=== PATIENT | male | born 1970 | race Caucasian/White ===

== ENCOUNTER → 2017-08-04 | Outpatient (CLI) | payer BC, OTHER ==
[2017-08-04 17:50] LABS: CREATININE 0.8 mg/dL (0.6-1.2)
[2017-08-04 17:54] LABS: HB2 TOTAL 15.4 g/dL; HEMOGLOBIN A1C 1.18 g/dL; HEMOGLOBIN A1C % 9.2 % (4.6-6.2)
== END ==
LOC: LAB.F 08:00
PROVIDERS: ATTEND Family Medicine
DX: E11.42 Type 2 diabetes mellitus with diabetic polyneuropathy (principal)
CPT/HCPCS: 36415; 82565; 83036; 84132

== ENCOUNTER 2017-09-14 11:21 | Outpatient (CLI) | payer OTHER ==
--- NOTE | 2017-09-14 13:10 | CT Report ---
CT ABDOMEN AND PELVIS WITHOUT CONTRAST: 09/14/2017 CLINICAL INDICATION: Ureteral stone. TECHNIQUE: Axial CT images of the abdomen and pelvis were obtained without oral or intravenous contrast. COMPARISON: No previous CT is available for comparison. FINDINGS: Limited evaluation of the lung bases is unremarkable. ABDOMEN: There is a right ureteral stent in place. Multiple small right renal calculi are seen, measuring up to 3 mm. No left renal calculi are seen. Allowing for the lack of intravenous contrast enhancement, the liver, spleen, pancreas and adrenal glands appear unremarkable. The gallbladder is not dilated. Postoperative changes are seen in the right anterior abdominal wall. No bowel dilatation, free gas, or free fluid is present. PELVIS: There is a paraumbilical hernia present, containing fat. No bowel herniation is seen. Right ureteral stent terminates in the urinary bladder. No hydroureter is seen. No bladder calculus is appreciated. No free fluid or pelvic adenopathy is seen. Osseous structures demonstrate degenerative changes. IMPRESSION: RIGHT URETERAL STENT IN PLACE. MULTIPLE SMALL RIGHT RENAL CALCULI, MEASURING UP TO [address] DOSE REDUCTION STATEMENT In accordance with CT protocol optimization, one or more of the following dose reduction techniques were utilized for this exam: automated exposure control, adjustment of mA and/or KV based on patient size, or use of iterative reconstructive technique. TD: 09/14/2017 13:09
== END 2017-09-14 11:22 | disposition home or self-care (01) ==
LOC: DI 11:21
PROVIDERS: ATTEND Urology
DX: N20.0 Calculus of kidney (principal); Z96.0 Presence of urogenital implants
CPT/HCPCS: 74176

== ENCOUNTER 2020-06-14 16:35 | Outpatient (CLI) | payer OTHER | END 2020-06-14 16:36 | disposition EMS.NT | LOC: EMS 16:35 | PROVIDERS: ATTEND Surgery | DX: R07.89 Other chest pain (principal) ==

== ENCOUNTER 2020-12-21 11:20 | Outpatient (CLI) | payer OTHER | END 2020-12-21 11:21 | disposition EMS.NT | LOC: EMS 11:20 | DX: Z03.89 Encounter for observation for other suspected diseases and conditions ruled out (principal) ==

== ENCOUNTER 2021-02-13 12:40 | Outpatient (CLI) | payer OTHER ==
[2021-02-13 20:11] LABS: ESTIMATED AVERAGE GLUCOSE 212 mg/dL (70-100)
== END 2021-02-13 12:41 | disposition home or self-care (01) ==
LOC: LAB.S 12:40
PROVIDERS: ATTEND Student in an Organized Health Care Education/Training Program
DX: E11.65 Type 2 diabetes mellitus with hyperglycemia (principal)
CPT/HCPCS: 36415; 83036

== ENCOUNTER 2021-02-26 14:44 | Outpatient (CLI) | payer OTHER | END 2021-02-26 14:45 | disposition EMS.NT | LOC: EMS 14:44 | DX: R09.81 Nasal congestion (principal); R05.9 Cough, unspecified; R06.00 Dyspnea, unspecified; H57.89 Other specified disorders of eye and adnexa ==

== ENCOUNTER 2021-09-03 12:32 | Outpatient (CLI) | payer OTHER ==
[2021-09-03 15:08] LABS: H. PYLORIS ANTIGEN STL NEGATIVE (Negative)
== END 2021-09-03 12:33 | disposition home or self-care (01) ==
LOC: LAB.S 12:32
PROVIDERS: ATTEND Internal Medicine Gastroenterology
DX: A04.8 Other specified bacterial intestinal infections (principal)
CPT/HCPCS: 87338

== ENCOUNTER 2022-02-11 14:56 | Emergency (ER) | payer OTHER ==
--- NOTE | 2022-02-11 15:01 | ED Physician Documentation ---
PD HPI Fall - Stated complaint Stated Complaint: FALL - History obtained from History obtained from: Patient - History of Present Illness Mechanism of injury: Tripped (he states there is an uneven step at his place of work, and he tripped on it, falling forward. struck right parietal area. No LOC but was dazed and felt confused. Coworker said he seemed slow to answer and somewhat off balance. Brought right to ER. [place] lightheaded and had near syncope in ER lobby.) Fall distance: Standing position Where injury occurred: Work Timing - onset: How many minutes ago (30), Today Injury(ies) location: Head, Neck. No: Chest, Abdomen Quality of pain: Pain, Aching (right frontal) Associated symptoms: AMS, Neck pain. No: LOC, Weakness, Paresthesias, Dyspnea, Nausea / vomiting Worsens with: Palpation Contributing factors: No: Anticoagulated, Intoxicated Similar symptoms before: Has not had sx before Recently seen: Not recently seen Review of Systems Constitutional: denies: Fever Eyes: denies: Decreased vision, Photophobia Nose: denies: Rhinorrhea / runny nose, Congestion Throat: denies: Sore throat Cardiac: denies: Chest pain / pressure Respiratory: denies: Cough GI: denies: Abdominal Pain, Nausea, Vomiting Skin: denies: Abrasion (s), Laceration (s) Neurologic: denies: Focal weakness, Numbness PD PAST MEDICAL HISTORY - Past Medical History Cardiovascular: None Respiratory: None Neuro: None Endocrine/Autoimmune: Type 2 diabetes GI: None, Hiatal hernia : Kidney stones - Past Surgical History Past Surgical History: Yes General: Hiatal hernia repair - Present Medications Home Medications: Ambulatory Orders Medication Instructions Recorded Confirmed Metformin HCl 500 mg PO BID #30 tablet 12/23/14 - Allergies Allergies/Adverse Reactions: Allergies Allergy/AdvReac Type Severity Reaction Status Date / Time No Known Drug Allergies Allergy Verified 12/22/14 23:01 - Social History Does the pt smoke?: No Smoking Status: Never smoker Does the pt drink ETOH?: Yes Does the pt have substance abuse?: No - Immunizations Immunizations are current?: Yes - POLST Patient has POLST: No PD ED PE NORMAL - Vitals Vital signs reviewed: Yes - General General: Alert and oriented X 3, Well developed/nourished - HEENT HEENT: PERRL, EOMI, Other (right parietal area with some soft tissue swelling and tenderness. No deformity. No lacerations. ) - Neck Neck: Supple, no meningeal sign, No adenopathy, Other (some tenderness without deformity in mid to lower right cervical area. ) - Cardiac Cardiac: RRR, No murmur - Respiratory Respiratory: Clear bilaterally, Other (no chestwall tenderness) - Abdomen Abdomen: Soft, Non tender - Back Back: No spinal TTP - Derm Derm: Normal color, Warm and dry - Extremities Extremities: Normal ROM s pain - Neuro Neuro: Alert and oriented X 3, No motor deficit, No sensory deficit, Normal speech Eye Opening: Spontaneous Motor: Obeys Commands Verbal: Oriented GCS Score: 15 Results - Vitals Vitals: Vital Signs - 24 hr 02/11/22 02/11/22 02/11/22 14:57 15:46 16:07 Temperature 37.2 C Heart Rate 98 88 90 Respiratory 14 18 16 Rate Blood Pressure 212/113 H 155/100 H 140/92 H O2 Saturation 99 98 100 02/11/22 02/11/22 16:30 17:00 Temperature Heart Rate 98 90 Respiratory 24 22 Rate Blood Pressure 176/84 H 154/96 H O2 Saturation 99 98 Oxygen O2 Source Room air - Labs Labs: Laboratory Tests 02/11/22 02/11/22 02/11/22 15:00 15:15 15:15 WBC 7.8 RBC 5.19 Hgb 14.6 Hct 43.5 MCV 83.8 MCH 28.1 MCHC 33.6 RDW 13.7 Plt Count 235 MPV 10.2 Neut # (Auto) 5.6 Lymph # (Auto) 1.6 [place] # (Auto) 0.5 Eos # (Auto) 0.1 Baso # (Auto) 0.0 Absolute Nucleated RBC 0.00 Nucleated RBC % 0.0 Sodium 136 Potassium 3.8 Chloride 103 Carbon Dioxide 23 Anion Gap 10.0 BUN 16 Creatinine 0.9 Estimated GFR (MDRD) 90 Glucose 329 H POC Whole Bld Glucose 352 H Calcium 9.2 Total Bilirubin 0.6 AST 15 ALT 22 Alkaline Phosphatase 66 Total Protein 7.6 Albumin 4.2 Globulin 3.4 Albumin/Globulin Ratio 1.2 Lipase 27 Ethyl Alcohol < 5.0 - Rads (name of study) head ct Radiology: Prelim report reviewed (no ICH nor acute injury), See rad report cervical CT Radiology: Prelim report reviewed (no fractures), See rad report PD MEDICAL DECISION MAKING - ED course Complexity details: reviewed results (normal head and cervical CTs. ), re-evaluated patient (he is looking more comfortable and alert on recheck. ), considered differential, d/w patient Departure - Departure Disposition: 01 Home, Self Care Clinical Impression: Fall from slip, trip, or stumble Qualifiers: Encounter type: initial encounter Qualified Code(s): W01.0XXA - Fall on same level from slipping, tripping and stumbling without subsequent striking against object, initial encounter Head contusion Qualifiers: Encounter type: initial encounter Contusion of head detail: scalp Qualified Code(s): S00.03XA - Contusion of scalp, initial encounter Mild concussion Qualifiers: Encounter type: initial encounter Loss of consciousness presence/duration: without LOC Qualified Code(s): S06.0X0A - Concussion without loss of consciousness, initial encounter Condition: Stable Record reviewed to determine appropriate education?: Yes Instructions: ED Concussion Follow-Up: JOEL CHAN DO [Primary Care Provider] - Comments: Your head CT and neck CT did not show any signs of bleeding, localized swelling, fractures. Your symptoms are consistent with a mild concussion. I would anticipate headache and some fogginess and some incoordination over the next 2 or 3 days. Progress activity as tolerated based on comfort and symptoms. If you find activity causing increased headache or feeling off balance etc., then you will need to extend the time of rest and less activity until you are better. Most commonly symptoms are 2 or 3 days but can be variable quite a bit among individuals. Tylenol ibuprofen as needed for headache. Discharge Date/Time: 02/11/22 17:09
[2022-02-11] MEDS ORDERED: KETOROLAC 15 MG/ML VIAL IVP STA (15:14)
[2022-02-11] MEDS ORDERED: ONDANSETRON 4 MG/2 ML VIAL IVP STA (15:15)
[2022-02-11 15:22] LABS: BASOPHILS % (AUTO) 0.4 %; EOSINOPHILS # (AUTO) 0.1 10^3/uL (0.0-0.7); EOSINOPHILS % (AUTO) 0.6 %; HCT - HEMATOCRIT 43.5 % (42.0-52.0); HGB - HEMOGLOBIN 14.6 g/dL (14.0-18.0); LYMPHOCYTES # (AUTO) 1.6 10^3/uL (1.5-3.5); LYMPHOCYTES % (AUTO) 20.7 %; MEAN CORPUSCULAR HEMOGLOBIN 28.1 pg (27.0-31.0); MEAN CORPUSCULAR HGB CONC 33.6 g/dL (32.0-36.0); MEAN CORPUSCULAR VOLUME 83.8 fL (80.0-94.0); MEAN PLATELET VOLUME 10.2 fL (7.4-11.4); MONOCYTES # (AUTO) 0.5 10^3/uL (0.0-1.0); MONOCYTES % (AUTO) 6.1 %; NEUTROPHILS # (AUTO) 5.6 10^3/uL (1.5-6.6); NEUTROPHILS % (AUTO) 71.7 %; PLT - PLATELET COUNT 235 10^3/uL (130-450); RED BLOOD COUNT 5.19 10^6/uL (4.70-6.10); RED CELL DISTRIBUTION WIDTH 13.7 % (12.0-15.0); WHITE BLOOD COUNT 7.8 x10^3/uL (4.8-10.8)
[2022-02-11 15:35] LABS: ALBUMIN 4.2 g/dL (3.2-5.5); ALBUMIN/GLOBULIN RATIO 1.2 (1.0-2.2); ALKALINE PHOSPHATASE 66 IU/L (42-121); ALT ALANINE AMINOTRANSFERASE 22 IU/L (10-60); AST ASPARTATE AMINOTRANSFERASE 15 IU/L (10-42); BILIRUBIN,TOTAL 0.6 mg/dL (0.2-1.0); BUN - BLOOD UREA NITROGEN 16 mg/dL (6-20); CALCIUM 9.2 mg/dL (8.5-10.3); CARBON DIOXIDE - CO2 23 mmol/L (21-32); CHLORIDE 103 mmol/L (101-111); CREATININE 0.9 mg/dL (0.6-1.2); ETOH - ETHANOL < 5.0 mg/dL; GFR - MDRD 90 (>89); GLUCOSE 329 mg/dL (70-100); LIPASE 27 U/L (22-51); POTASSIUM 3.8 mmol/L (3.5-5.0); SODIUM 136 mmol/L (135-145); TOTAL PROTEIN 7.6 g/dL (6.7-8.2)
--- NOTE | 2022-02-11 16:04 | CT Report ---
PROCEDURE: CERVICAL SPINE WO INDICATIONS: fall, struck head; head/neck pain TECHNIQUE: Noncontrast 3 mm thick sections acquired from the skull base to the T4 level. Sagittal and coronal r eformats were then constructed. For radiation dose reduction, the following was used: automated exp osure control, adjustment of mA and/or kV according to patient size. COMPARISON: None. FINDINGS: Image quality: Excellent. Bones: No fractures or dislocations. Visualized superior ribs are intact. Soft tissues: Prevertebral soft tissues are normal in thickness. No paravertebral hematomas. No ap ical pneumothoraces. IMPRESSION: No acute cervical spine fracture or dislocation. Reviewed by: Praveen Irizarry MD on 02/11/2022 4:03 PM PDT Approved by: Praveen Irizarry MD on 02/11/2022 4:03 PM PDT Station ID: [id number]
--- NOTE | 2022-02-11 16:05 | CT Report ---
PROCEDURE: HEAD WO INDICATIONS: fall, struck head; confused/FINK TECHNIQUE: Noncontrast 4.5 mm thick angled axial sections acquired from the foramen magnum to the vertex. For r adiation dose reduction, the following was used: automated exposure control, adjustment of mA and/or kV according to patient size. COMPARISON: None. FINDINGS: Image quality: Excellent. CSF spaces: Basal cisterns are patent. No extra-axial fluid collections. Ventricles are normal in size and shape. Brain: No midline shift. No intracranial masses or hemorrhage. Contreras-white matter interface is norm al. Skull and face: Calvarium and visualized facial bones are intact, without suspicious lesions. Sinuses: Visualized sinuses and mastoids are clear. IMPRESSION: No CT evidence of acute intracranial abnormalities. No gross acute skull fracture. Reviewed by: Praveen Irizarry MD on 02/11/2022 4:03 PM PDT Approved by: Praveen Irizarry MD on 02/11/2022 4:03 PM PDT Station ID: [id number]
[2022-02-11 17:09] VITALS: BP 154/96
== END 2022-02-11 17:09 | disposition home or self-care (01) ==
LOC: ED 14:56
DX: S06.0X0A Concussion without loss of consciousness, initial encounter (principal); S00.03XA Contusion of scalp, initial encounter; W01.0XXA Fall on same level from slipping, tripping and stumbling without subsequent striking against object, initial encounter; Y92.511 Restaurant or cafe as the place of occurrence of the external cause; Y99.0 Civilian activity done for income or pay
CPT/HCPCS: 36415; 80053; 80320; 83690; 85025; 93005; 96374; 96375; 99282

== ENCOUNTER 2023-05-15 13:33 | Outpatient (CLI) | payer OTHER | END 2023-05-15 13:34 | disposition critical access hospital (66) | LOC: EMS 13:33 | DX: E11.65 Type 2 diabetes mellitus with hyperglycemia (principal); Z79.4 Long term (current) use of insulin; R00.0 Tachycardia, unspecified; R61 Generalized hyperhidrosis; R55 Syncope and collapse; R42 Dizziness and giddiness | CPT/HCPCS: A0425; A0429 ==

== ENCOUNTER 2023-05-15 14:09 | Emergency (ER) | payer OTHER ==
[2023-05-15 14:26] LABS: BASOPHILS # (AUTO) 0.1 10^3/uL (0.0-0.1); BASOPHILS % (AUTO) 0.6 %; EOSINOPHILS % (AUTO) 0.4 %; HCT - HEMATOCRIT 45.5 % (42.0-52.0); LYMPHOCYTES # (AUTO) 1.5 10^3/uL (1.5-3.5); LYMPHOCYTES % (AUTO) 18.4 %; MEAN CORPUSCULAR HEMOGLOBIN 27.9 pg (27.0-31.0); MEAN CORPUSCULAR VOLUME 84.6 fL (80.0-94.0); MEAN PLATELET VOLUME 10.1 fL (7.4-11.4); MONOCYTES # (AUTO) 0.5 10^3/uL (0.0-1.0); MONOCYTES % (AUTO) 5.9 %; NEUTROPHILS # (AUTO) 5.9 10^3/uL (1.5-6.6); NEUTROPHILS % (AUTO) 74.2 %; PLT - PLATELET COUNT 228 10^3/uL (130-450); RED BLOOD COUNT 5.38 10^6/uL (4.70-6.10); RED CELL DISTRIBUTION WIDTH 13.2 % (12.0-15.0); WHITE BLOOD COUNT 7.9 x10^3/uL (4.8-10.8)
[2023-05-15 14:33] VITALS: O2SAT 98
[2023-05-15 14:44] LABS: ALBUMIN 4.2 g/dL (3.2-5.5); ALBUMIN/GLOBULIN RATIO 1.4 (1.0-2.2); BILIRUBIN,TOTAL 0.3 mg/dL (0.2-1.0); CREATININE 0.9 mg/dL (0.6-1.3); POTASSIUM 4.1 mmol/L (3.5-4.5); TOTAL PROTEIN 7.3 g/dL (6.4-8.9)
[2023-05-15 14:47] LABS: TROPONIN I HIGH SENSITIVITY 5.1 ng/L (2.3-19.7)
[2023-05-15] MEDS ORDERED: ACETAMINOPHEN 325 MG TABLET PO STA (15:03)
--- NOTE | 2023-05-15 15:06 | ED Physician Documentation ---
History of Present Illness - Stated complaint Stated Complaint: SYNCOPE/HIGH BLOOD SUGAR - Chief complaint Chief Complaint: Neuro - History obtained from History obtained from: Patient - Additonal information Additional information: 53-year-old male with a history of type 2 diabetes and obesity presents after a syncopal episode at work. 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 He sat down in a chair and then apparently slumped over and was unresponsive for about 5 minutes. He had some twitching in his limbs but no seizure-like activity, he continued to breathe on his own but was not responsive to voice. He had no loss of bowel or bladder. He Then woke up, and was back to baseline mentation, and felt somewhat nauseous And reported a headache. He denies having any chest pain, no difficulty breathing, no abdominal pain, vomiting or diarrhea, no urinary symptoms. He does have a headache though would not classify it as a thunderclap headache or the worst headache of his life but it is more severe than his regular headaches. No vision changes, no diplopia or blurry vision. He did not injure himself when he syncopized, as he was sitting down. He states he has not been taking great care of himself recently, his blood sugars have been elevated though he has been taking his Humulin, he states he has had some difficulty getting appropriate syringes making it difficult to give himself the correct medication apparently. 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 Review of Systems Constitutional: reports: Reviewed and negative Eyes: reports: Reviewed and negative Ears: reports: Reviewed and negative Nose: reports: Reviewed and negative Throat: reports: Reviewed and negative Cardiac: reports: Reviewed and negative Respiratory: reports: Reviewed and negative GI: reports: Reviewed and negative : reports: Reviewed and negative Skin: reports: Reviewed and negative Musculoskeletal: reports: Reviewed and negative Neurologic: reports: Generalized weakness, Syncope, Confused. denies: Focal weakness, Numbness, Difficulty speaking, Headache, Head injury Psychiatric: reports: Reviewed and negative PD PAST MEDICAL HISTORY - Past Medical History Past Medical History: Yes Cardiovascular: None Respiratory: None Neuro: None Endocrine/Autoimmune: Type 2 diabetes GI: None, Hiatal hernia : Kidney stones - Past Surgical History Past Surgical History: Yes General: Hiatal hernia repair - Present Medications Home Medications: Ambulatory Orders Medication Instructions Recorded Confirmed Metformin HCl 500 mg PO BID #30 tablet 12/23/14 05/15/23 Insulin Regular Human [Humulin R] 41 units SUBQ BID 05/15/23 05/15/23 - Allergies Allergies/Adverse Reactions: Allergies Allergy/AdvReac Type Severity Reaction Status Date / Time [id number] Reductase AdvReac Anxiety Verified 05/15/23 14:39 Inhibitor - Social History Does the pt smoke?: No Smoking Status: Never smoker Does the pt drink ETOH?: Yes Does the pt have substance abuse?: No - Immunizations Immunizations are current?: Yes - POLST Patient has POLST: No PD ED PE NORMAL - Vitals Vital signs reviewed: Yes - General General: Alert and oriented X 3, No acute distress, Well developed/nourished - HEENT HEENT: Atraumatic, Pharynx benign - Neck Neck: Supple, no meningeal sign, No adenopathy, No JVD, No bruit - Cardiac Cardiac: RRR, No murmur, No gallop, No rub - Respiratory Respiratory: No respiratory distress, Clear bilaterally - Abdomen Abdomen: Normal bowel sounds, Soft, Non tender, Non distended, Other (obese in contour) - Derm Derm: Normal color, Warm and dry, No rash - Neuro Neuro: Alert and oriented X 3, job recruiter 2-12 intact, No motor deficit, No sensory deficit, Normal speech, Other (NIH 0) Eye Opening: Spontaneous Motor: Obeys Commands Verbal: Oriented GCS Score: 15 - Psych Psych: Normal mood, Normal affect Results - Vitals Vitals: Vital Signs - 24 hr 05/15/23 05/15/23 05/15/23 14:26 14:47 15:33 Temperature 36.2 C L 36.6 C Heart Rate 96 93 94 Respiratory 16 14 22 Rate Blood Pressure 169/98 H 166/96 H 155/97 H O2 Saturation 98 98 98 05/15/23 17:27 Temperature 36.1 C L Heart Rate 89 Respiratory 18 Rate Blood Pressure 168/107 H O2 Saturation 98 Oxygen O2 Source Room air - EKG (time done) No standard instances EKG releavant findings:: EKG personally interpreted by author of this note. Relevant findings are: Rate: Rate (enter#) (93) Rhythm: NSR [place]: Normal Intervals: Normal CT QRS: Normal Ischemia: Normal ST segments Computer interpretation: Agree with computer - Labs Labs: Laboratory Tests 05/15/23 05/15/23 05/15/23 14:22 14:22 14:45 WBC 7.9 RBC 5.38 Hgb 15.0 Hct 45.5 MCV 84.6 MCH 27.9 MCHC 33.0 RDW 13.2 Plt Count 228 MPV 10.1 Neut # (Auto) 5.9 Lymph # (Auto) 1.5 Falls # (Auto) 0.5 Eos # (Auto) 0.0 Baso # (Auto) 0.1 Absolute Nucleated RBC 0.00 Nucleated RBC % 0.0 Sodium 132 L Potassium 4.1 Chloride 100 L Carbon Dioxide 22 Anion Gap 10.0 BUN 23 H Creatinine 0.9 Estimated GFR (MDRD) 89 Glucose 368 H Calcium 9.0 Total Bilirubin 0.3 AST 10 ALT 16 Alkaline Phosphatase 72 Troponin I High Sens 5.1 Total Protein 7.3 Albumin 4.2 Globulin 3.1 Albumin/Globulin Ratio 1.4 Lipase 20 Urine Color YELLOW Urine Clarity CLEAR Urine pH 5.5 Ur Specific [place] 1.010 Urine Protein TRACE Urine Glucose (UA) >=1000 H Urine Ketones TRACE Urine Occult Blood NEGATIVE Urine Nitrite NEGATIVE Urine Bilirubin NEGATIVE Urine Urobilinogen 0.2 (NORMAL) Ur Leukocyte Esterase NEGATIVE Ur Microscopic Review NOT INDICATED Urine Culture Comments NOT INDICATED 05/15/23 16:14 WBC RBC Hgb Hct MCV MCH MCHC RDW Plt Count MPV Neut # (Auto) Lymph # (Auto) [place] # (Auto) Eos # (Auto) Baso # (Auto) Absolute Nucleated RBC Nucleated RBC % Sodium Potassium Chloride Carbon Dioxide Anion Gap BUN Creatinine Estimated GFR (MDRD) Glucose Calcium Total Bilirubin AST ALT Alkaline Phosphatase Troponin I High Sens 6.2 Total Protein Albumin Globulin Albumin/Globulin Ratio Lipase Urine Color Urine Clarity Urine pH Ur Specific [place] Urine Protein Urine Glucose (UA) Urine Ketones Urine Occult Blood Urine Nitrite Urine Bilirubin Urine Urobilinogen Ur Leukocyte Esterase Ur Microscopic Review Urine Culture Comments - Rads (name of study) No standard instances Relevant Findings:: Final report received PD Medical Decision Making - ED course Complexity details: reviewed results, re-evaluated patient, considered differential, d/w patient, d/w family ED course: 53-year-old male presented after a syncopal episode at work as described in HPI. On arrival here, the patient is in no acute distress, vital signs are stable, and his physical exam is unremarkable other than some mild hypertension. We did obtain an EKG which shows normal sinus rhythm, no acute ischemic changes, I obtain 2 sets of troponins which are negative, his labs are unremarkable aside from elevated glucose. He received a liter of fluid here, and in general felt better and strongly desired to go home. He declined testing for flu and COVID, or additional testing at this time. He does discuss that he has an immensely stressful workplace and this is likely contributing to some of his symptoms. We had a long discussion about the need to try to reduce his stress and offload some of his workload so that he can focus on his health, he does need to lose weight and Reduce salt in his diet. We discussed starting a gentle exercise program as well such as walking daily. Patient is hypertensive here, he states no history of hypertension and therefore I have advised him to see his PCP on outpatient basis to follow-up on the blood pressure and start on blood pressure medication if indicated. Of note, the patient did have a headache here though it was not a thunderclap type headache and it started after his syncopal episode. I did consider a CT scan however patient felt better with IV fluids and Tylenol and therefore we did not proceed with a CT as patient was feeling better and strongly desired to go home. He was advised that if he had any recurrent episodes to return to the ER. Departure - Departure Disposition: 01 Home, Self Care Clinical Impression: Syncope Qualifiers: Syncope type: unspecified Qualified Code(s): R55 - Syncope and collapse Hypertension Qualifiers: Hypertension type: unspecified Qualified Code(s): I10 - Essential (primary) hypertension Condition: Good Instructions: Hypertension Control, ED Fainting Unkn Cause Comments: Please schedule a routine follow-up visit with your primary doctor as soon as possible. I would like you to monitor your blood pressure at home and talk with your primary doctor about this, you may need to be started on blood pressure medicine. You can start by reducing your salt intake and slowly increasing your daily activity. If your blood pressure becomes more elevated at home and is routinely high, please return to the ER. If you have recurrent episodes of syncope or passing out, return to the ER. If you have any confusion or alteration of mental status, chest pain or new concerns I would also want you to return. As we discussed, you have an immense amount of stress in your life right now and I think that could be contributing. Please try to reduce your workload and get sufficient rest. Forms: PCP List Discharge Date/Time: 05/15/23 17:28
[2023-05-15 15:09] LABS: BILIRUBIN,URINE NEGATIVE (NEGATIVE); GLUCOSE, URINE (UA) >=1000 mg/dL (NEGATIVE); KETONES,URINE (UA) TRACE mg/dL (NEGATIVE); LEUKOCYTE ESTERASE, URINE NEGATIVE (NEGATIVE); NITRITE,URINE NEGATIVE (NEGATIVE); OCCULT BLOOD,URINE NEGATIVE (NEGATIVE); PH,URINE 5.5 PH (5.0-7.5); PROTEIN,URINE TRACE mg/dL (NEGATIVE); UROBILINOGEN,URINE 0.2 (NORMAL) E.U./dL (NORMAL)
[2023-05-15 15:10] LABS: CLARITY,URINE CLEAR (CLEAR)
[2023-05-15 17:30] VITALS: BP 168/107
== END 2023-05-15 17:28 | disposition home or self-care (01) ==
LOC: EDUNIT# → ED 14:09
DX: R55 Syncope and collapse (principal); I10 Essential (primary) hypertension; E11.9 Type 2 diabetes mellitus without complications; Z79.4 Long term (current) use of insulin; Z79.84 Long term (current) use of oral hypoglycemic drugs
CPT/HCPCS: 36415; 80053; 81003; 83690; 84484; 85025; 93005; 99283; A9270; 81001; 87086

== ENCOUNTER 2023-11-05 16:18 | Outpatient (CLI) | payer BC | END 2023-11-05 23:59 | disposition critical access hospital (66) | LOC: EMS 16:18 | DX: R53.83 Other fatigue (principal); R53.1 Weakness; R29.810 Facial weakness; R42 Dizziness and giddiness; R00.0 Tachycardia, unspecified | CPT/HCPCS: A0425; A0429 ==

== ENCOUNTER 2023-11-05 16:24 | Emergency (ER) | payer BC, OTHER ==
[2023-11-05 17:10] LABS: BASOPHILS % (AUTO) 0.4 %; EOSINOPHILS # (AUTO) 0.1 10^3/uL (0.0-0.7); EOSINOPHILS % (AUTO) 0.7 %; HCT - HEMATOCRIT 44.6 % (42.0-52.0); HGB - HEMOGLOBIN 14.7 g/dL (14.0-18.0); LYMPHOCYTES # (AUTO) 1.6 10^3/uL (1.5-3.5); LYMPHOCYTES % (AUTO) 18.2 %; MEAN CORPUSCULAR HEMOGLOBIN 28.2 pg (27.0-31.0); MEAN CORPUSCULAR VOLUME 85.6 fL (80.0-94.0); MEAN PLATELET VOLUME 10.4 fL (7.4-11.4); MONOCYTES # (AUTO) 0.6 10^3/uL (0.0-1.0); MONOCYTES % (AUTO) 6.8 %; NEUTROPHILS # (AUTO) 6.6 10^3/uL (1.5-6.6); NEUTROPHILS % (AUTO) 73.6 %; PLT - PLATELET COUNT 235 10^3/uL (130-450); RED BLOOD COUNT 5.21 10^6/uL (4.70-6.10); RED CELL DISTRIBUTION WIDTH 13.2 % (12.0-15.0)
[2023-11-05 17:19] LABS: PARTIAL THROMBOPLASTIN TIME 33.7 secs (24.9-33.3)
[2023-11-05 17:23] LABS: ALBUMIN 4.1 g/dL (3.2-5.5); ALBUMIN/GLOBULIN RATIO 1.4 (1.0-2.2); BILIRUBIN,TOTAL 0.3 mg/dL (0.2-1.0); CALCIUM 9.4 mg/dL (8.5-10.3); CREATININE 0.9 mg/dL (0.6-1.3); INR 1.1 (0.8-1.2); POTASSIUM 3.8 mmol/L (3.5-4.5); PT - PROTHROMBIN TIME 11.7 secs (9.9-12.6); TOTAL PROTEIN 7.1 g/dL (6.4-8.9)
[2023-11-05] MEDS: SODIUM CHLORIDE 0.9% 1,000 ML IV STA (17:26)
[2023-11-05 17:29] LABS: TROPONIN I HIGH SENSITIVITY 10.5 ng/L (2.3-19.7)
--- NOTE | 2023-11-05 17:45 | ED Physician Documentation ---
PD HPI FOCAL NEURO - Stated complaint Stated Complaint: L SIDE FACIAL DROOP - Chief complaint Chief Complaint: Neuro - History obtained from History obtained from: Patient - History of Present Illness Timing - onset: Today Timing - duration: Minutes (1-2) Associated symptoms: No: Seizure, Syncope, Fall, Head injury, Chest pain, Neck pain, Back pain Contributing factors: positive: Anticoagulated Baseline status: positive: A&OX3, ambulatory, indep - Additional information Additional information: Patient is a 53-year-old male who presents to the emergency department stating that he was feeling odd sensations today. 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 He states that he was feeling hot and mild nausea with a mild headache. He states that he began to talk to his adult manager and she said that he had a slight left-sided facial droop. He states that that lasted about 1 to 2 minutes and symptoms have since resolved. He states he feels normal now. No chest pain. No shortness of breath. No numbness or tingling. No vomiting. No chest pain. No palpitations. Not anticoagulated. He is a diabetic. Patient is otherwise asymptomatic currently. Review of Systems Constitutional: denies: Fever, Chills Nose: denies: Rhinorrhea / runny nose, Congestion Throat: denies: Sore throat Cardiac: denies: Chest pain / pressure, Palpitations, Calf pain Respiratory: denies: Cough GI: denies: Abdominal Pain, Vomiting, Diarrhea Musculoskeletal: denies: Neck pain, Back pain Neurologic: reports: Other (Mildly lightheaded earlier, not lightheaded now.). denies: Syncope, Seizure, Head injury, LOC PD PAST MEDICAL HISTORY - Past Medical History Cardiovascular: None Respiratory: None Neuro: None Endocrine/Autoimmune: Type 2 diabetes GI: None, Hiatal hernia : Kidney stones - Past Surgical History Past Surgical History: Yes General: Hiatal hernia repair - Present Medications Home Medications: Ambulatory Orders Medication Instructions Recorded Confirmed Metformin HCl 500 mg PO BID #30 tablet 12/23/14 11/05/23 Insulin Regular Human [Humulin R] 42 units SUBQ BID 05/15/23 11/05/23 Insulin Aspart [Insulin Aspart 42 unit SQ BID 11/05/23 11/05/23 Flexpen] Lisinopril [Zestril] 20 mg PO DAILY 11/05/23 11/05/23 Losartan [Cozaar] 50 mg PO DAILY 11/05/23 11/05/23 Omeprazole 20 mg PO DAILY 11/05/23 11/05/23 - Allergies Allergies/Adverse Reactions: Allergies Allergy/AdvReac Type Severity Reaction Status Date / Time [id number] Reductase AdvReac Anxiety Verified 11/05/23 16:34 Inhibitor - Social History Does the pt smoke?: No Smoking Status: Never smoker Does the pt drink ETOH?: Yes Does the pt have substance abuse?: No - Immunizations Immunizations are current?: Yes - POLST Patient has POLST: No PD ED PE NORMAL - Vitals Vital signs reviewed: Yes - General General: Alert and oriented X 3, No acute distress - HEENT HEENT: PERRL, Moist mucous membranes - Neck Neck: Supple, no meningeal sign - Cardiac Cardiac: RRR, Strong equal pulses - Respiratory Respiratory: No respiratory distress, Clear bilaterally - Abdomen Abdomen: Soft, Non tender, Non distended - Derm Derm: Warm and dry - Extremities Extremities: No edema, No calf tenderness / cord - Neuro Neuro: Alert and oriented X 3, bingo attendant 2-12 intact, No motor deficit, No sensory deficit, Normal speech Eye Opening: Spontaneous Motor: Obeys Commands Verbal: Oriented GCS Score: 15 - Psych Psych: Normal mood, Normal affect NIHSS - Time Time: 16:35 - Level of Consciousness Level of consciousness: (0) Alert, Keenly responsive LOC Questions: (0) Answers both Q's correct LOC Commands: (0) Performs both correctly - Gaze Best Gaze: (0) Normal - Visual Visual: (0) No loss - Facial Palsy Facial Palsy: (0) Normal, symmetrical movement - Motor Arms (both separate) Motor Arm (right): (0) No drift Motor Arm (left): (0) No drift - Motor Legs (both separate) Motor Leg (right): (0) No drift Motor Leg (left): (0) No drift - Limb Ataxia Limb Ataxia: (0) Absent - Sensory Sensory: (0) Normal - Best Language Best Language: (0) No aphasia - Dysarthria Dysarthria: (0) Normal - Extinction and Inattention (formally neg Extinction and inattention: (0) No abnormality - Total Score/Results Total Score/Result: 0 Results - Vitals Vitals: Vital Signs - 24 hr 11/05/23 11/05/23 11/05/23 16:31 18:34 20:23 Temperature 36.6 C Heart Rate 113 H 90 76 Respiratory 20 16 16 Rate Blood Pressure 157/91 H 131/88 H 156/83 H O2 Saturation 97 98 100 Oxygen O2 Source Room air - EKG (time done) 1706 EKG releavant findings:: EKG personally interpreted by author of this note. Relevant findings are: Rate: Rate (enter#) (97) Rhythm: NSR [place]: Normal Intervals: Normal AR QRS: Normal Ischemia: ST elevation c/w repol - Labs Labs: Laboratory Tests 11/05/23 11/05/23 11/05/23 16:48 16:48 16:48 WBC 9.0 RBC 5.21 Hgb 14.7 Hct 44.6 MCV 85.6 MCH 28.2 MCHC 33.0 RDW 13.2 Plt Count 235 MPV 10.4 Neut # (Auto) 6.6 Lymph # (Auto) 1.6 [place] # (Auto) 0.6 Eos # (Auto) 0.1 Baso # (Auto) 0.0 Absolute Nucleated RBC 0.00 Nucleated RBC % 0.0 PT 11.7 INR 1.1 APTT 33.7 H Sodium 137 Potassium 3.8 Chloride 104 Carbon Dioxide 25 Anion Gap 8.0 BUN 22 H Creatinine 0.9 Estimated GFR (MDRD) 89 Glucose 183 H Calcium 9.4 Total Bilirubin 0.3 AST 12 ALT 17 Alkaline Phosphatase 59 Troponin I High Sens 10.5 Total Protein 7.1 Albumin 4.1 Globulin 3.0 Albumin/Globulin Ratio 1.4 Lipase 10 L PD Medical Decision Making - ED course Complexity details: reviewed results, re-evaluated patient, considered differential, d/w patient ED course: No acute findings on EKG or laboratory testing. NIH stroke scale of 0. Head CT and CT angiogram of the head and neck were ordered. There was a prolonged wait for the CT scan as there were multiple trauma patients that came in near this same time. Patient stated that he did not want to wait for a head CT and angiogram. He states he feels normal and would like to follow-up with his doctor instead. Understands the risk of missed stroke, missed findings on angiogram that may need urgent intervention. Patient is awake, coherent and understands these risks. Patient states he will follow-up with his doctor early next week and have an MRI performed. Recommend evaluation of his carotids with either angiogram, MRA or ultrasound as well. Patient states he will return if he worsens or symptoms recur. Patient counseled regarding signs and symptoms for which I believe and urgent re-evaluation would be necessary. Patient with good understanding of and agreement to plan and is comfortable going home at this time This document was made in part using voice recognition software. While efforts are made to proofread this document, sound alike and grammatical errors may occur. Departure - Departure Disposition: 01 Home, Self Care Clinical Impression: Stroke-like symptoms Condition: Stable Instructions: ED Transient Ischemic Attack Follow-Up: your,doctor [Other] Comments: Please follow-up with your doctor next week for further care and to order an MRI of your brain. Please return if you worsen. You have chosen to leave tonight before your CT and CT angiograms are done. If your symptoms recur or you worsen or change your mind about further evaluation, please return at any time. Forms: PCP List Discharge Date/Time: 11/05/23 20:24
[2023-11-05] MEDS ORDERED: iohexoL-300 100 ML VIAL ONE (18:51)
[2023-11-05 20:28] VITALS: BP 156/83; O2SAT 100
--- NOTE | 2023-11-05 20:35 | XRAY Report ---
PROCEDURE: Chest 1V INDICATIONS: tachycardia TECHNIQUE: One view of the chest was acquired. COMPARISON: No priors examination available for review FINDINGS: Surgical changes and devices: None. Lungs and pleura: Low lung volumes. Lungs otherwise clear. No dense consolidation. No pneumothorax o r substantial pleural effusion. Mediastinum: Mediastinal contours appear normal. Heart size is normal. Bones and chest wall: No suspicious bony lesions. Overlying soft tissues appear unremarkable. IMPRESSION: Low lung volumes. Otherwise, no acute cardiopulmonary abnormality seen. Reviewed by: Jaguar Poon MD on 11/05/2023 8:33 PM PDT Approved by: Jaguar Poon MD on 11/05/2023 8:33 PM PDT Station ID: [id number]
== END 2023-11-05 20:24 | disposition home or self-care (01) ==
LOC: EDUNIT# → ED 16:24
DX: R29.810 Facial weakness (principal); R11.0 Nausea; R51.9 Headache, unspecified; R68.89 Other general symptoms and signs; R42 Dizziness and giddiness
CPT/HCPCS: 36415; 80053; 83690; 84484; 85025; 85610; 85730; 93005; 99284

== ENCOUNTER 2023-12-08 09:18 | Outpatient (CLI) | payer BC | END 2023-12-08 09:19 | disposition home or self-care (01) | LOC: LAB.R 09:18 | PROVIDERS: ATTEND Podiatrist | DX: E11.622 Type 2 diabetes mellitus with other skin ulcer (principal) | CPT/HCPCS: 87070; 87077; 87205 ==